=== PATIENT | female | born 1995 | race Caucasian/White ===

== ENCOUNTER 2018-11-26 19:03 | Emergency (ER) | payer SELFPAY ==
[2018-11-26 20:06] VITALS: BP 105/61
--- NOTE | 2018-11-26 20:06 | Event Note ---
ED Screening Note Date of service: 11/26/18 Time: 20:04 ED Screening Note: cc of right breast pain x 1 month interemittent mass that painful to touch, no drainage This initial assessment/diagnostic orders/clinical plan/treatment(s) is/are subject to change based on patients health status, clinical progression and re- assessment by fellow clinical providers in the ED. Further treatment and workup at subsequent clinical providers discretion. Patient/guardian urged not to elope from the ED as their condition may be serious if not clinically assessed and managed. Initial orders include: Breast Exam mass vs abscess? PAin med
== END 2018-11-26 20:33 | disposition left against medical advice (07) ==
LOC: ED 19:03
DX: N64.4 Mastodynia (principal); Z53.21 Procedure and treatment not carried out due to patient leaving prior to being seen by health care provider